=== PATIENT | female | born 1955 | race Caucasian/White ===

== ENCOUNTER → 2024-07-01 | Outpatient (REF) | payer MEDICARE ==
[~2024-07-01] MED LIST: METOPROLOL TARTRATE INJ 1 MG/ML VIAL ONE; NITROGLYCERIN 0.4 MG SUBL ONE
[2024-07-01 10:13] LABS: CREATININE, SERUM 0.96 mg/dL (0.57-1.11)
== END ==
LOC: CT 09:18
PROVIDERS: ATTEND Internal Medicine Cardiovascular Disease
DX: I25.810 Atherosclerosis of coronary artery bypass graft(s) without angina pectoris (principal); I47.20 Ventricular tachycardia, unspecified
CPT/HCPCS: 36415; 75574; 82565; 84520